=== PATIENT | female | born 1990 | race Caucasian/White ===

== ENCOUNTER 2016-06-12 18:38 | Inpatient (IN) | payer MEDICAID, OTHER ==
[2016-06-12] MEDS ORDERED: MAGNESIUM HYDROXIDE 2,400 MG/10 ML CUP PO PRN (21:52)
[2016-06-12] MEDS ORDERED: ZIPRASIDONE 20 MG VIAL IM PRN (21:52)
[2016-06-12] MEDS ORDERED: LORazepam 2 MG/ML SYRINGE IM PRN (21:54)
[2016-06-12] MEDS ORDERED: LORazepam 1 MG TAB PO PRN (21:54)
[2016-06-13 02:23] VITALS: BMI 39.3
[2016-06-13] MEDS: METOPROLOL SUCCINATE (ER) 50 MG TAB.ER.24H PO SCH (08:49)
[2016-06-13] MEDS: DULoxetine HCL 60 MG CAPSULE.DR PO SCH (08:50)
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
[2016-06-13] MEDS ORDERED: LORATADINE 10 MG TAB PO PRN (18:00)
[2016-06-13] MEDS: ACETAMINOPHEN TAB 325 MG TAB PO PRN (20:38)
[2016-06-13] MEDS: GABAPENTIN 100 MG CAP PO SCH (20:39)
[2016-06-13] MEDS ORDERED: QUEtiapine 100 MG TAB PO SCH (21:00)
[2016-06-14] MEDS: DULoxetine HCL 60 MG CAPSULE.DR PO SCH (08:43)
[2016-06-14] MEDS: GABAPENTIN 100 MG CAP PO SCH ×2 (08:43→21:02)
[2016-06-14] MEDS: METOPROLOL SUCCINATE (ER) 50 MG TAB.ER.24H PO SCH (08:44)
[2016-06-14] MEDS: PANTOPRAZOLE 40 MG TABLET PO SCH (08:44)
[2016-06-14 18:40] LABS: Basophils # (A) 0.1 k/uL (0-0.2); Basophils % (A) 1 %; CH 27.5; CHCM 32.4; Eosinophils # (A) 0.2 k/uL (0-0.7); Eosinophils % (A) 2 %; HCT 46.6 % (34.0-46.0); HDW 2.62; HGB 14.9 gm/dL (11.4-16.0); Luc # (Auto) 0.24; Luc % (Auto) 3; Lymphocytes # (A) 3.2 k/uL (1.0-4.8); Lymphocytes % (A) 33 %; MCH 27.3 pg (25.0-35.0); MCHC 31.9 g/dL (31.0-37.0); MCV 85.5 fL (80.0-100.0); Mean Platelet Volume 6.9; Monocytes # (A) 0.4 k/uL (0-1.0); Monocytes % (A) 4 %; Neutrophils # (A) 5.4 k/uL (1.3-7.7); Neutrophils % (A) 58 %; RBC 5.46 m/uL (3.80-5.40); WBC 9.5 k/uL (3.8-10.6); WBC (Perox) 9.09
--- NOTE | 2016-06-14 18:51 | PN ---
DATE OF SERVICE: June 14, 2016. CHIEF COMPLAINT: The patient was admitted for depression and social anxiety difficulties. She described having suicidal thoughts. She has had increasing depression over the last few weeks. She has loss of motivation, energy and interest. Sleep has been fluctuating. She has been having some auditory and visual hallucinations. INTERVAL HISTORY: Patient has been doing fair. She had a quiet evening last night. She has attended some groups though not others. She slept fairly well. Today, she has been doing a little bit better overall. When she is in groups she will often be quiet. She does not show much energy or effort. She seems to be attentive. She will spend time in her room by herself. She overall has been functioning a little better today where she seems to show better self-care. She was noted to sleep about 6-1/2 hours last night, though she says her sleep was broken. She describes her problems with urination where she has frequency. She says that she has had some concern that she might have early signs of diabetes. She appears to tolerating her medications. She had just been started on Cymbalta prior to her admission. Her Seroquel was continued the same. There is no substance abuse history. MENTAL STATUS: Patient was in her room lying down. She gave a fairly good eye contact. Psychomotor activity was a little slow. Speech was appropriate in rate, tone and rhythm. She answered questions with direct responses. She was not spontaneous, though she was somewhat interactive. Her affect was a little constricted. Her mood quiet. She did not appear to be significantly distressed. ASSESSMENT: I will continue the current diagnosis and treatment plan. Will continue to make efforts to engage the patient in individual and group therapeutic activities. I will continue Cymbalta 60 mg a day. I will increase Seroquel from 100 mg a day up to 200 mg a day, given that the patient is reporting psychotic symptoms with auditory and visual hallucinations. I would look to titrate up on Seroquel to an adequate therapeutic level which would be in the range of 3 to 600 mg. We will do labs to assess for diabetes and basic health issues. Will focus on stabilization. We will coordinate with outpatient resources for discharge planning.
[2016-06-14 18:53] LABS: Anion Gap 14 mmol/L; Blood Urea Nitrogen 21 mg/dL (7-17); Calcium 9.6 mg/dL (8.4-10.2); Carbon Dioxide 22 mmol/L (22-30); Chloride 104 mmol/L (98-107); Glucose 111 mg/dL (74-99); Non-African American GFR(MDRD) >60 (>60 ml/min/1.73 sqM); Potassium 4.5 mmol/L (3.5-5.1); Sodium 140 mmol/L (137-145)
[2016-06-14 19:19] LABS: Hemoglobin A1C 5.1 % (4.2-6.1)
[2016-06-14] MEDS: QUEtiapine 200 MG TAB PO SCH (21:02)
[2016-06-15] MEDS: DULoxetine HCL 60 MG CAPSULE.DR PO SCH (08:15)
[2016-06-15] MEDS: PANTOPRAZOLE 40 MG TABLET PO SCH (08:15)
[2016-06-15] MEDS: GABAPENTIN 100 MG CAP PO SCH ×2 (08:15→20:45)
[2016-06-15] MEDS: METOPROLOL SUCCINATE (ER) 50 MG TAB.ER.24H PO SCH (08:15)
[2016-06-15] MEDS: ACETAMINOPHEN TAB 325 MG TAB PO PRN (18:06)
[2016-06-15 18:15] LABS: Appearance,Urine Cloudy (Clear); Bacteria,Urine Occasional /hpf; Bilirubin,Urine Negative (Negative); Glucose,Urine (UA) Negative (Negative); Ketones,Urine Negative (Negative); Leukocyte Esterase,Urine Moderate (Negative); Mucus,Urine Rare /hpf; Nitrite,Urine Negative (Negative); PH, Urine 5.5 (5.0-8.0); Particle Count 6991; Protein,Urine Negative (Negative); RBC,Urine 1 /hpf (0-5); Specific Gravity,Urine 1.013 (1.001-1.035); Squamous Epithelial Cell,Urine 7 /hpf (0-4); UA Billing (MACRO vs. MICRO) MICRO; Urobilinogen,Urine <2.0 mg/dL (<2.0); WBC,Urine 13 /hpf (0-5)
[2016-06-15] MEDS: QUEtiapine 200 MG TAB PO SCH (20:45)
[2016-06-16] MEDS: DULoxetine HCL 60 MG CAPSULE.DR PO SCH (08:45)
[2016-06-16] MEDS: GABAPENTIN 100 MG CAP PO SCH (08:45)
[2016-06-16] MEDS: PANTOPRAZOLE 40 MG TABLET PO SCH (08:45)
[2016-06-16] MEDS: ACETAMINOPHEN TAB 325 MG TAB PO PRN ×2 (08:45→16:48)
[2016-06-16] MEDS: METOPROLOL SUCCINATE (ER) 50 MG TAB.ER.24H PO SCH (08:47)
--- NOTE | 2016-06-16 10:20 | PN ---
INTERVAL HISTORY: 06/15/2016 CHIEF COMPLAINT: The patient was admitted for depression and social anxiety difficulties. She described having suicidal thoughts. She has had increasing depression over the last few weeks. She has loss of motivation, energy and interest. Sleep has been fluctuating. She has been having some auditory and visual hallucinations. INTERVAL HISTORY: Patient has been doing fair. She had a quiet evening last night. She attends groups. She tends to be a quiet in group. She does acknowledge that she struggles with social anxiety. She slept fairly well. Today, she has been up and about. She spends sometime in her room. She has been doing things like sitting on her bed and going through some papers she has. She likes to review music lyrics that she is interested in. She has attended some groups and not others. She says that she has some struggle with sharing in group. She says that some of the groups that she has attended, others were talking quite a bit and was hard for her to find space to discuss her issues. It is noted that the patient has a bachelors degree in [employer]. She has not been able to do much with her degree, though she does have an interest in pursuing design on a professional level. She says that her mood is somewhat improved. She had a few concerns about her medications. She said she had some bruising and showed me a couple different areas on both her arms some, some of which were at sites of injection, though two were not where injections had occurred. One was quite small and well healed. The other was a small and appeared a little fresher. She also said she had a bitter taste in her mouth. She acknowledges that she has not been keeping up with fluids. One additional has been some vaginal odor and itching, as yet she has not made her recollection for urinalysis. She seems to be getting along fairly well. She is a little more animated and a little more interactive. She has not had significant change in her general health. She tolerates her psychotropic medications. MENTAL STATUS: Patient was in her room. She gave good eye contact. Psychomotor activity was a little slow. Speech was normal. She answered questions with direct responses. She was somewhat spontaneous and a little interactive. Her affect was somewhat blunted, though not significantly so. Her mood was quiet though not clearly depressed. She did not appear to be distressed. ASSESSMENT: I will continue the current diagnosis and treatment plan. Will continue psychotropic medications as same. We will encourage the patient to get the urinalysis completed as per her concern about vaginal issues. We will continue to focus on stabilization and discharge planning. I had an extensive discussion with the patient regarding activities at home. The patient acknowledges that she does not do much in the community. She lives with her mother. 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 It might be an opportunity for her to experience some design work out in the real world and possibly move her in the direction of professional development.
--- NOTE | 2016-06-16 14:48 | P.PN ---
Progress Note - Text SUBJECTIVE: Patient endorses:waking up 3-4 times at night ,nightmares, paranoia ,suspicious "Last night I was hearing someone saying there is shooting on the unit", trouble to concentrate and to retain informations"I have to write everything", she endorses lot of obsession "Listen to same music ,buying lot of pink stuffs", patient reports hands tremors ,lot of somatic complains :dizzy spells ,vertigo and lightheaded Patient endorses fear of criticism or disapproval ,viewing herself as "Inadequate " MENTAL STATUS EXAM: Patient is casually dressed ,adequate grooming ,came to office with written notes asking about medications side-effect and reporting her current symptoms, gave good eyes contact ,endorses:paranoia ,irrational fear ,poor sleep , auditory hallucinations"At night", denies any current suicidal or homicidal ideation,no manic features PLAN:1) Discontinue Neurontin to eliminate hands tremors 2) Continue Cymbalta ,change Seroquel to XR to restore normal sleep ,will consider to titrate it to eliminate psychotic features 3) Encourage groups participation ,discussed with patient post-discharge plan and possibility to refer her to [facility] counseling and [facility] ,patient agreed but she wants to discuss this with her mother
[2016-06-16] MEDS ORDERED: FLUCONAZOLE 150 MG TAB PO STA (15:05)
[2016-06-16] MEDS: QUEtiapine XR 200 MG TAB.ER.24H PO SCH (18:57)
[2016-06-16] MEDS: CIPROFLOXACIN HCL 250 MG TAB PO SCH (21:11)
[2016-06-17] MEDS: ACETAMINOPHEN TAB 325 MG TAB PO PRN (02:57)
--- NOTE | 2016-06-17 08:22 | P.CONS ---
History of Present Illness - Reason for Consult Consult date: 06/13/16 Medical management - History of Present Illness 25-year-old female. She follows with a physician in [place]. She has a past medical history of hypertension, gastroesophageal reflux disease, recurrent depression. She states she started with a new therapist on Thursday and told her that she had been depressed over the weekend and had suicidal thoughts. She was then sent to [facility] and 4 days later was transferred to [facility] mental health unit due to insurance reasons. She does have prior suicide attempts the first one was in 2006 with overdose on Effexor and a second one in 2014 where she drank alcohol and took her mother's Vicodin. She is complaining of cough with yellow sputum production and drainage down her throat. Review of Systems All systems: negative Constitutional: Denies chills, Denies fever Eyes: denies blurred vision, denies pain Ears, nose, mouth and throat: Denies headache, Denies sore throat Cardiovascular: Denies chest pain, Denies shortness of breath Respiratory: Denies cough Gastrointestinal: Denies abdominal pain, Denies diarrhea, Denies nausea, Denies vomiting Genitourinary: Denies dysuria, Denies hematuria Musculoskeletal: Denies myalgias Integumentary: Denies pruritus, Denies rash Neurological: Denies numbness, Denies weakness Psychiatric: Reports depression, Reports hopelessness, Reports suicidal ideation , Denies anxiety Endocrine: Denies fatigue, Denies weight change Past Medical History Past Medical History: GERD/Reflux, Hypertension History of Any Multi-Drug Resistant Organisms: None Reported Additional Past Surgical History / Comment(s): Left knee arthroscopy Past Psychological History: Depression Smoking Status: Never smoker Additional Past Alcohol Use History / Comment(s): Patient is a lifelong nonsmoker. She drinks alcohol rarely. She denies any medical marijuana or marijuana, street drug use. - Past Family History Father Additional Family Medical History / Comment(s): Father is alive at age 58 the patient has no contact with him. Mother Additional Family Medical History / Comment(s): Mother is alive at age 62 with history of asthma. Brother(s) Additional Family Medical History / Comment(s): Patient has one half-brother with no major medical problems. Patient has 2 half-sisters with no major medical problems. Patient does not have any children. Medications and Allergies Home Medications Medication Instructions Recorded Confirmed Type Apri ( Control) 1 tab PO DAILY 06/12/16 06/13/16 History LORazepam [Ativan] 0.5 mg PO BID PRN 06/12/16 06/13/16 History Loratadine [Claritin] 10 mg PO DAILY PRN 06/12/16 06/13/16 History PARoxetine HCL [Paxil] 30 mg PO DAILY 06/12/16 06/13/16 History QUEtiapine FUMARATE [SEROquel] 100 mg PO HS 06/12/16 06/13/16 History Allergies Allergy/AdvReac Type Severity Reaction Status Date / Time Penicillins Allergy Unknown Verified 06/13/16 02:02 Physical Exam Vitals: Vital Signs Temp Pulse Pulse Resp BP BP 06/13/16 08:56 96 16 143/79 06/13/16 06:32 98.3 F 101 H 18 132/69 06/13/16 02:19 98.5 F 109 H 16 136/103 Intake and Output 06/12/16 06/13/16 06/13/16 22:59 06:59 14:59 Other: Weight 47.355 kg 104 kg Gen: This is a 25 year old female. She is cooperative and appears to be in no acute distress. HEENT: Head is atraumatic, normocephalic. Pupils equal, round. Sclerae is anicteric. NECK: Supple. No JVD. No lymphadenopathy. No thyromegaly. LUNGS: Clear to auscultation. No wheezes or rhonchi. No intercostal retractions. HEART: Regular rate and rhythm. No murmur. ABDOMEN: Soft. Bowel sounds are present. No masses. No tenderness. EXTREMITIES: No pedal edema. No calf tenderness. NEUROLOGICAL: Patient is awake, alert and oriented x3. Cranial nerves 2 through 12 are grossly intact. Results CBC & Chem 7: 06/14/16 18:20 06/14/16 18:20 Assessment and Plan Plan: 1. Depression with suicidal ideation. Patient admitted to the mental health unit. Continue current plan of care. 2. Hypertension. Continue metoprolol succinate 50 mg daily. 3. Gastroesophageal reflux disease. Continue Protonix 40 mg daily. 4. Urinary tract infection. Continue Cipro 250 mg twice daily. 5. Vaginal yeast infection. Diflucan 1. 6. No history of tobacco use. No need for nicotine patch. Impression and plan of care have been directed as dictated by the signing physician. Susi Good nurse practitioner acting as scribe for signing physician. Time with Patient: Greater than 30
[2016-06-17] MEDS: DULoxetine HCL 60 MG CAPSULE.DR PO SCH (08:26)
[2016-06-17] MEDS: CIPROFLOXACIN HCL 250 MG TAB PO SCH ×2 (08:26→21:06)
[2016-06-17] MEDS: PANTOPRAZOLE 40 MG TABLET PO SCH (08:27)
[2016-06-17] MEDS: METOPROLOL SUCCINATE (ER) 50 MG TAB.ER.24H PO SCH (08:27)
[2016-06-17] MEDS ORDERED: IBUPROFEN 400 MG TAB PO PRN (10:11)
[2016-06-17] MEDS ORDERED: LORazepam 1 MG TAB PO PRN (10:13)
--- NOTE | 2016-06-17 10:36 | P.PN ---
Subjective SUBJECTIVE: Patient endorses:interrupted sleep ,paranoia and suspicious from her roommate " I am afraid that she will steal my notebook",,lot of somatic complain, ruminating about her health and her diagnosis ,rates her anxiety 6/10 ,10 being the worse.reports feeling on edge "Especially around people",feeling more irritable since I discontinued Neurontin,indecisive and confused about her relationship MENTAL STATUS EXAM: Patient is casually dressed ,adequate grooming ,came to office with written notes asking about medications side-effect and reporting her current symptoms, gave good eyes contact ,endorses:paranoia ,irrational fear ,poor sleep ,denies any hallucination ,somatic preoccupied, stated mood "Anxious",affect is blunted , denies any current suicidal or homicidal ideation,no manic features ,no aggressive behavior ASSESSMENT :Patient is still having anxiety ,paranoia and suspicious PLAN:1) Restart Neurontin ,add Motrin for pain ,continue Cipro for UTI ,add PRN Ativan for anxiety 2) Continue Cymbalta and Seroquel ,will consider to titrate it to eliminate psychotic features 3) Encourage groups participation ,SW to arrange family meeting to discuss post- discharge plan and referral to [facility] Objective - Vital Signs Vital signs: Vital Signs Temp 97.8 F 06/17/16 05:01 Pulse 84 06/17/16 05:01 Resp 18 06/17/16 05:01 BP 135/88 06/17/16 05:01 Pulse Ox - Labs CBC & Chem 7: 06/14/16 18:20 06/14/16 18:20
[2016-06-17] MEDS: guaiFENesin 600 MG TABLET.ER PO PRN (12:39)
[2016-06-17] MEDS: MAG HYDROX/AL HYDROX/SIMETH 30 ML CUP PO PRN (15:25)
[2016-06-17] MEDS: GABAPENTIN 100 MG CAP PO SCH ×2 (16:13→21:06)
[2016-06-17] MEDS: QUEtiapine XR 200 MG TAB.ER.24H PO SCH (18:38)
[2016-06-17] MEDS: MICONAZOLE NITRATE 200 MG VAGINAL SCH (21:06)
[2016-06-18] MEDS: GABAPENTIN 100 MG CAP PO SCH ×3 (08:05→21:21)
[2016-06-18] MEDS: PANTOPRAZOLE 40 MG TABLET PO SCH (08:05)
[2016-06-18] MEDS: DULoxetine HCL 60 MG CAPSULE.DR PO SCH (08:05)
[2016-06-18] MEDS: CIPROFLOXACIN HCL 250 MG TAB PO SCH ×2 (08:06→20:09)
[2016-06-18] MEDS: METOPROLOL SUCCINATE (ER) 50 MG TAB.ER.24H PO SCH (08:06)
[2016-06-18] MEDS ORDERED: BENZTROPINE MESYLATE 0.5 MG TAB PO PRN (13:04)
--- NOTE | 2016-06-18 13:22 | P.PN ---
Progress Note - Text SUBJECTIVE: Patient endorses:irritable mood ,low frustration tolerance ,,,lot of somatic complain,ruminating about her health and her diagnosis ,rates her irritability 5 or 6/10,10 the worse.reports feeling on edge ,recurrent suicidal ideation but able to contract for safety on the unit as she said "I do not feel safe outside hospital ",preoccupied with unjustified doubts about others ,suspect ,without sufficient basis that others are deceiving her She reports of having "Jerks movement with Seroquel" PER NURSING STAFF:slept 6 hours ,somatic preoccupied MENTAL STATUS EXAM: Patient is casually dressed ,adequate grooming ,came to office with written notes asking about medications side-effect and reporting her current symptoms, gave good eyes contact ,endorses:paranoia ,irrational fear ,,denies any hallucination ,somatic preoccupied, ,affect is blunted, ,not able to contract for safety outside hospital,no manic features ,no aggressive behavior ASSESSMENT :Patient is still having suicidal ideation ,labile and irritable mood ,paranoia and suspicious AIMS:negative, PLAN:1) Increase Neurontin to stabilize her mood ,continue Cymbalta and Seroquel ,same dose,add cogentin PRN,continue participation in milieu , monitor her suicidal ideation and irritability
[2016-06-18] MEDS: QUEtiapine XR 200 MG TAB.ER.24H PO SCH (18:49)
[2016-06-18] MEDS: MAG HYDROX/AL HYDROX/SIMETH 30 ML CUP PO PRN (20:09)
[2016-06-18] MEDS: MICONAZOLE NITRATE 200 MG VAGINAL SCH (20:10)
[2016-06-19] MEDS: GABAPENTIN 100 MG CAP PO SCH ×3 (09:26→20:53)
[2016-06-19] MEDS: METOPROLOL SUCCINATE (ER) 50 MG TAB.ER.24H PO SCH (09:26)
[2016-06-19] MEDS: CIPROFLOXACIN HCL 250 MG TAB PO SCH ×2 (09:26→20:53)
[2016-06-19] MEDS: PANTOPRAZOLE 40 MG TABLET PO SCH (09:27)
[2016-06-19] MEDS: DULoxetine HCL 60 MG CAPSULE.DR PO SCH (09:27)
--- NOTE | 2016-06-19 14:58 | P.PN ---
Progress Note - Text SUBJECTIVE: Patient endorses:irritable mood , ,,,lot of somatic complain,ruminating about her health and her diagnosis ,preoccupied with unjustified doubts about others , suspect ,without sufficient basis that others are deceiving her She reports AM sedation ,tiredness and fatigue since increasing Seroquel to 200 mg PER NURSING STAFF:slept 6 hours ,participating in groups and milieu MENTAL STATUS EXAM: Patient is casually dressed ,adequate grooming ,came to office with written notes asking about medications side-effect and reporting her current symptoms, gave good eyes contact ,,,denies any hallucination ,,despite denying psychotic features seems having trust issue ,no manic features ,no aggressive behavior, no suicidal or homicidal ideation,insight is improving ASSESSMENT :patient is less depressed ,denies suicidal or homicidal ideation , still somatic preoccupied ,endorses some AM sedation due to Seroquel AIMS:negative, PLAN:Decreased Seroquel to 150 mg instead of 200 mg ,continue rest of medication ,most likely discharge Tomorrow to [facility]
[2016-06-19] MEDS: MICONAZOLE NITRATE 200 MG VAGINAL SCH (20:54)
[2016-06-19 22:36] LABS: Appearance,Urine Cloudy (Clear); Bacteria,Urine Occasional /hpf; Bilirubin,Urine Negative (Negative); Glucose,Urine (UA) Negative (Negative); Ketones,Urine Negative (Negative); Leukocyte Esterase,Urine Moderate (Negative); Nitrite,Urine Negative (Negative); Particle Count 2137; Protein,Urine Negative (Negative); RBC,Urine 6 /hpf (0-5); Specific Gravity,Urine 1.008 (1.001-1.035); Squamous Epithelial Cell,Urine 1 /hpf (0-4); UA Billing (MACRO vs. MICRO) MICRO; Urobilinogen,Urine <2.0 mg/dL (<2.0); WBC,Urine 26 /hpf (0-5)
[2016-06-20 07:04] VITALS: BP 162/63; PULSE 108; RESP 16; TEMP 98
[2016-06-20] MEDS: DULoxetine HCL 60 MG CAPSULE.DR PO SCH (08:24)
[2016-06-20] MEDS: PANTOPRAZOLE 40 MG TABLET PO SCH (08:24)
[2016-06-20] MEDS: CIPROFLOXACIN HCL 250 MG TAB PO SCH (08:24)
[2016-06-20] MEDS: GABAPENTIN 100 MG CAP PO SCH ×2 (08:24→16:10)
[2016-06-20] MEDS: METOPROLOL SUCCINATE (ER) 50 MG TAB.ER.24H PO SCH (08:24)
[2016-06-20] MEDS: guaiFENesin 600 MG TABLET.ER PO PRN (09:32)
--- NOTE | 2016-06-21 09:41 | DS ---
DATE OF ADMISSION: 06/12/2016 DATE OF DISCHARGE: 06/20/2016 CONSULT PHYSICIAN: Routine. CONSULTING PROVIDE: Susi Good. CONSULT REASON: Medical management. Do you want consulting provider notified? She already was notified. DISCHARGE DIAGNOSES: 1. Major depression, recurrent, severe. 2. Social anxiety. 3. History of bipolar disorder. 4. Cluster C personality disorder. For brief summary of admission notes, please refer to my initial psychiatric evaluation dictated on June 13. HOSPITAL COURSE: Patient was admitted as a transfer from inpatient [facility] as her insurance did not cover her stay in [facility]. I did continue her on Cymbalta as she was just started on Cymbalta. I did discuss with her Seroquel XR as she was on regular Seroquel and this to help her thinking and restore her sleep and pursue her social phobia and she did agree to switch to Seroquel XR 150 mg at night. I did try to increase the Seroquel XR to 200; however, she started having jerk and extrapyramidal symptoms and Cogentin was added. During her stay here, patient was seen very somatic, preoccupied, over analyzing her diagnosis. She was able to tolerate Cymbalta and Seroquel without complaining of any side effect; however, her urinalysis was positive for bacteria and we did start her on Cipro for urinary tract infection on June 16, 250 mg twice a day. Patient did note that since she did start Neurontin she has been less anxious and able to tolerate people more and she was participating in group therapy and activity therapy. drapery worker had family meeting with patient's mother who did feel that the patient was improving. She was still so preoccupied with how other people are treating her, but she was very receptive to behavior and cognitive therapy. Her mental status examination at the time of the discharge, patient is alert, good eye contact, hygiene and grooming are adequate. Speech is spontaneous, non-pressured. At times, she is ( ), but easily to re-direct. She denied any homicidal or suicide ideation. She does not feel hopeless or helpless. In fact she has a lot of future goals to increase her socialization. There is no evidence of hypomania or curtis. There is no evidence of psychosis. Her insight and judgment are improving. Cognitive ability has remained stable throughout her hospitalization as she is alert, oriented to person, place and date. There is no verbal or physical aggression observed. PLAN: 1. Patient was discharged from the mental health unit today to return back home. Patient will see her outpatient psychiatrist, Dr. Watson. 2. Patient has to follow up with her primary care physician regarding her urinary tract infection as I will continue her on Cipro 250 twice a day until June 26. Patient was given one month supply for: 1. Cymbalta 60 mg for depression and anxiety. 2. Neurontin 200 mg 3 times a day for anxiety. 3. Seroquel XR 150 mg for her sleep and as augmentation for Cymbalta. 4. Patient also was given Cogentin as needed for 2-week supply p.r.n. for any extrapyramidal effect. 5. Motrin 400 mg to take every 6 hours p.r.n. for pain. 6. Patient stated that she has Ativan at home 0.5 to take it twice a day as needed for anxiety or for social phobia. So she was not given any prescription for Ativan. 7. However, during her stay, patient was experiencing high blood pressure and the railroad design consultant did start her on Toprol XL 50 mg daily and I did give her prescription for one-month supply for Toprol in addition Protonix 40 mg daily, magnesium hydroxide or milk magnesium p.r.n. The patient is able to complete her activity on daily living and she is not eminent to self harm or harming other, does not have any access to firearms and she was ready to be transferred to [facility] for intensive therapy and increased social activity.
== END 2016-06-20 17:42 | disposition home or self-care (01) | DRG 885 ==
LOC: 3MHU 20:25
PROVIDERS: ADMIT Psychiatry & Neurology Psychiatry; ATTEND Psychiatry & Neurology Psychiatry
DX: F33.2 Major depressive disorder, recurrent severe without psychotic features (principal); R45.851 Suicidal ideations; I10 Essential (primary) hypertension; N39.0 Urinary tract infection, site not specified; F40.10 Social phobia, unspecified; F60.6 Avoidant personality disorder; F60.89 Other specific personality disorders; K21.9 Gastro-esophageal reflux disease without esophagitis; Z79.899 Other long term (current) drug therapy; Z81.8 Family history of other mental and behavioral disorders; Z88.0 Allergy status to penicillin; Z91.5 Personal history of self-harm
CPT/HCPCS: 80048; 81001; 83036; 84443; 85025

== ENCOUNTER 2018-09-13 11:12 | Emergency (ER) | payer OTHER ==
[2018-09-13 11:18] VITALS: RESP 18
--- NOTE | 2018-09-13 12:38 | ED ---
Psych HPI - General Chief Complaint: Psychiatric Symptoms Stated Complaint: mental health Time Seen by Provider: 09/13/18 11:20 Source: patient Mode of arrival: ambulatory - History of Present Illness Initial Comments: This is a 28-year-old female the ER for psychiatric evaluation. Patient is having psychosis, seeing things that aren't there, she believes that she is part satan adn part of the illuminati, patient denies alcohol drugs 30 abuse of medications today. MD Complaint: altered mental status -: unknown Associated Psychiatric Symptoms: homicidal ideation, racing thoughts, auditory hallucinations, visual hallucinations, delusions Quality: intermittent Improves With: none Worsens With: none Treatments Prior to Arrival: placed on mental health hold - Related Data Home Medications Medication Instructions Recorded Confirmed Loratadine [Claritin] 10 mg PO DAILY 06/12/16 09/13/18 Albuterol Inhaler [Ventolin Hfa 1 - 2 puff INHALATION RT-QID PRN 03/01/17 09/13/18 Inhaler] Propranolol [Inderal] 40 mg PO BID 09/13/18 09/13/18 buPROPion HCL [Wellbutrin XL] 300 mg PO DAILY 09/13/18 09/13/18 buPROPion XL [Wellbutrin Xl] 150 mg PO DAILY 09/13/18 09/13/18 hydrOXYzine PAMOATE [Vistaril] 100 mg PO BID 09/13/18 09/13/18 lamoTRIgine [LaMICtal] 200 mg PO HS 09/13/18 09/13/18 Allergies Allergy/AdvReac Type Severity Reaction Status Date / Time Penicillins Allergy Rash/Hives Verified 09/13/18 11:52 Review of Systems ROS Statement: Those systems with pertinent positive or pertinent negative responses have been documented in the HPI. ROS Other: All systems not noted in ROS Statement are negative. Past Medical History Past Medical History: GERD/Reflux, Hypertension History of Any Multi-Drug Resistant Organisms: None Reported Additional Past Surgical History / Comment(s): Left knee arthroscopy Past Psychological History: Anxiety, Bipolar, Depression Smoking Status: Never smoker Past Alcohol Use History: Unable to Obtain Past Drug Use History: None Reported - Past Family History Father Additional Family Medical History / Comment(s): Father is alive at age 58 the patient has no contact with him. Mother Additional Family Medical History / Comment(s): Mother is alive at age 62 with history of asthma. Brother(s) Additional Family Medical History / Comment(s): Patient has one half-brother with no major medical problems. Patient has 2 half-sisters with no major medical problems. Patient does not have any children. General Exam Limitations: no limitations General appearance: alert, in no apparent distress Head exam: Present: atraumatic, normocephalic, normal inspection Eye exam: Present: normal appearance, PERRL, EOMI. Absent: scleral icterus, conjunctival injection, periorbital swelling ENT exam: Present: normal exam, mucous membranes moist Neck exam: Present: normal inspection. Absent: tenderness, meningismus, lymphadenopathy Respiratory exam: Present: normal lung sounds bilaterally. Absent: respiratory distress, wheezes, rales, rhonchi, stridor Cardiovascular Exam: Present: regular rate, normal rhythm, normal heart sounds. Absent: systolic murmur, diastolic murmur, rubs, gallop, clicks GI/Abdominal exam: Present: soft, normal bowel sounds. Absent: distended, tenderness, guarding, rebound, rigid Extremities exam: Present: normal inspection, full ROM, normal capillary refill. Absent: tenderness, pedal edema, joint swelling, calf tenderness Back exam: Present: normal inspection Neurological exam: Present: alert, oriented X3, CN II-XII intact Psychiatric exam: Present: normal affect, normal mood Skin exam: Present: warm, dry, intact, normal color. Absent: rash Course Vital Signs 09/13/18 09/13/18 11:13 16:27 Temperature 98.7 F 98.1 F Pulse Rate 81 80 Respiratory 18 18 Rate Blood Pressure 160/98 141/89 O2 Sat by Pulse 100 96 Oximetry - Reevaluation(s) Reevaluation #1: Patient's medically clear for psychiatric evaluation Medical Decision Making - Medical Decision Making Plan I female the ER for evaluation. Patient with psychosis, not currently suicidal or homicidal. Patient can be discharged home - Lab Data Lab Results 09/13/18 Range/Units 14:30 Urine Opiates Screen Not Detected (NotDetected) Ur Oxycodone Screen Not Detected (NotDetected) Urine Methadone Screen Not Detected (NotDetected) Ur Propoxyphene Screen Not Detected (NotDetected) Ur Barbiturates Screen Not Detected (NotDetected) U Tricyclic Antidepress Not Detected (NotDetected) Ur Phencyclidine Scrn Not Detected (NotDetected) Ur Amphetamines Screen Not Detected (NotDetected) U Methamphetamines Scrn Not Detected (NotDetected) U Benzodiazepines Scrn Not Detected (NotDetected) Urine Cocaine Screen Not Detected (NotDetected) U Marijuana (THC) Screen Not Detected (NotDetected) Disposition Clinical Impression: Acute psychosis Disposition: HOME SELF-CARE Condition: Fair Instructions (If sedation given, give patient instructions): Brief Psychotic Disorder (ED) Is patient prescribed a controlled substance at d/c from ED?: No Referrals: Gaetano Yee DO [Primary Care Provider] - 1-2 days
[2018-09-13 14:57] LABS: Amphetamine Screen,Urine Not Detected (NotDetected); Barbiturate Screen,Urine Not Detected (NotDetected); Benzodiazepines Screen,Urine Not Detected (NotDetected); Cocaine Screen,Urine Not Detected (NotDetected); Methadone Screen, Urine Not Detected (NotDetected); Opiate Screen,Urine Not Detected (NotDetected); Oxycodone Screen, Urine Not Detected (NotDetected); Phencyclidine Screen,Urine Not Detected (NotDetected); Tricyclic Antidepressant,Urine Not Detected (NotDetected); Urn Cannabinoid Scrn Not Detected (NotDetected)
[2018-09-13 16:29] VITALS: BP 141/89; PULSE 80; TEMP 98.1
--- NOTE | 2018-09-14 04:34 | CDI ---
Documentation Clarification OP Dear Pawan PATINO, DO Please do addendum to ED report for missing HPI and Physical examination. Thank you, Ifeanyi Deng Biomathematician If you have any questions, please contact Practice Advisor at [phone] [facility]
== END 2018-09-13 16:27 | disposition home or self-care (01) ==
LOC: EC 11:12
DX: F23 Brief psychotic disorder (principal); I10 Essential (primary) hypertension; F41.9 Anxiety disorder, unspecified; F32.9 Major depressive disorder, single episode, unspecified; Z79.899 Other long term (current) drug therapy; Z88.0 Allergy status to penicillin
CPT/HCPCS: 80306; 82075; 99285

== ENCOUNTER 2019-07-27 15:59 | Inpatient (IN) | payer MEDICAID, OTHER ==
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
[2019-07-27 17:36] LABS: Amphetamine Screen,Urine Not Detected (NotDetected); Barbiturate Screen,Urine Not Detected (NotDetected); Benzodiazepines Screen,Urine Not Detected (NotDetected); Cocaine Screen,Urine Not Detected (NotDetected); Methadone Screen, Urine Not Detected (NotDetected); Opiate Screen,Urine Not Detected (NotDetected); Oxycodone Screen, Urine Not Detected (NotDetected); Phencyclidine Screen,Urine Not Detected (NotDetected); Tricyclic Antidepressant,Urine Not Detected (NotDetected); Urn Cannabinoid Scrn Not Detected (NotDetected)
[2019-07-27] MEDS ORDERED: MAGNESIUM HYDROXIDE 2,400 MG/10 ML CUP PO PRN (20:34)
[2019-07-27] MEDS ORDERED: MAG HYDROX/AL HYDROX/SIMETH 30 ML CUP PO PRN (20:34)
[2019-07-27 21:06] LABS: Amorphous Sediment,Urine Rare /hpf; Appearance,Urine Cloudy (Clear); Bacteria,Urine Many /hpf; Bilirubin,Urine Negative (Negative); Blood,Urine Moderate (Negative); Color,Urine Yellow; Glucose,Urine (UA) Negative (Negative); Hyaline Casts,Urine 3 /lpf (0-2); Ketones,Urine 3+ (Negative); Leukocyte Esterase,Urine Moderate (Negative); Mucus,Urine Many /hpf; Nitrite,Urine Positive (Negative); Protein,Urine 2+ (Negative); RBC,Urine 5 /hpf (0-5); Specific Gravity,Urine 1.032 (1.001-1.035); Squamous Epithelial Cell,Urine 17 /hpf (0-4); Urobilinogen,Urine <2.0 mg/dL (<2.0); WBC,Urine 29 /hpf (0-5)
[2019-07-27] MEDS: hydrOXYzine PAMOATE 25 MG CAP PO SCH (22:11)
[2019-07-27] MEDS: lamoTRIgine 100 MG TAB PO SCH (22:12)
[2019-07-27] MEDS: NORG EE PO SCH (22:13)
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
[2019-07-28 07:35] LABS: Appearance,Urine Cloudy (Clear); Bacteria,Urine Many /hpf; Bilirubin,Urine Negative (Negative); Blood,Urine Moderate (Negative); Color,Urine Yellow; Glucose,Urine (UA) Negative (Negative); Ketones,Urine 2+ (Negative); Leukocyte Esterase,Urine Small (Negative); Mucus,Urine Many /hpf; Nitrite,Urine Positive (Negative); PH, Urine 5.5 (5.0-8.0); Protein,Urine 1+ (Negative); RBC,Urine 7 /hpf (0-5); Specific Gravity,Urine 1.035 (1.001-1.035); Squamous Epithelial Cell,Urine 5 /hpf (0-4); Urobilinogen,Urine <2.0 mg/dL (<2.0); WBC,Urine 21 /hpf (0-5)
[2019-07-28 09:46] LABS: Basophils % (A) 1 %; Eosinophils # (A) 0.1 k/uL (0-0.7); Eosinophils % (A) 1 %; HCT 45.9 % (34.0-46.0); HGB 15.1 gm/dL (11.4-16.0); Lymphocytes # (A) 3.1 k/uL (1.0-4.8); Lymphocytes % (A) 40 %; MCH 27.7 pg (25.0-35.0); MCHC 32.8 g/dL (31.0-37.0); MCV 84.5 fL (80.0-100.0); Mean Platelet Volume 7.3; Monocytes # (A) 0.3 k/uL (0-1.0); Monocytes % (A) 4 %; Neutrophils # (A) 4.1 k/uL (1.3-7.7); Neutrophils % (A) 53 %; Platelet Count 363 k/uL (150-450); RBC 5.43 m/uL (3.80-5.40); RDW 13.7 % (11.5-15.5); WBC 7.9 k/uL (3.8-10.6)
[2019-07-28 09:55] LABS: ALT 26 U/L (4-34); AST 27 U/L (14-36); African American GFR (CKD) >90 (>60 ml/min/1.73 sqM); Albumin 4.6 g/dL (3.5-5.0); Alkaline Phosphatase 69 U/L (38-126); Anion Gap 14 mmol/L; Blood Urea Nitrogen 17 mg/dL (7-17); Calcium 9.2 mg/dL (8.4-10.2); Carbon Dioxide 23 mmol/L (22-30); Chloride 100 mmol/L (98-107); Cholesterol 240 mg/dL (<200); Glucose 114 mg/dL (74-99); Non-African American GFR(CKD) >90 (>60 ml/min/1.73 sqM); Potassium 4.6 mmol/L (3.5-5.1); Sodium 137 mmol/L (137-145); Total Protein 7.8 g/dL (6.3-8.2); Triglycerides 129 mg/dL (<150)
[2019-07-28] MEDS: hydrOXYzine PAMOATE 25 MG CAP PO SCH ×2 (10:27→21:01)
[2019-07-28] MEDS: buPROPion XL 300 MG TAB.ER.24H PO SCH (10:27)
[2019-07-28] MEDS: buPROPion XL 150 MG TAB.ER.24H PO SCH (10:27)
[2019-07-28] MEDS: NITROFURANTOIN MONOHYD/M-CRYST 100 MG CAP PO SCH ×2 (10:28→21:01)
[2019-07-28] MEDS: LORATADINE 10 MG TAB PO SCH (10:28)
[2019-07-28 10:53] LABS: HDL Cholesterol 112 mg/dL (40-60); LDL Cholesterol,Calculated 102 mg/dL (0-99)
[2019-07-28] MEDS: LOPERAMIDE 2 MG CAP PO PRN (11:09)
[2019-07-28] MEDS: ONDANSETRON 4 MG TAB PO PRN (11:09)
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
[2019-07-28 16:22] LABS: Hemoglobin A1C 4.3 % (4.0-6.0)
[2019-07-28] MEDS: ACETAMINOPHEN TAB 325 MG TAB PO PRN ×2 (17:03→21:01)
[2019-07-28] MEDS: lamoTRIgine 100 MG TAB PO SCH (21:01)
[2019-07-28] MEDS: NORG EE PO SCH (21:03)
[2019-07-29] MEDS: buPROPion XL 300 MG TAB.ER.24H PO SCH (09:36)
[2019-07-29] MEDS: LORATADINE 10 MG TAB PO SCH (09:36)
[2019-07-29] MEDS: hydrOXYzine PAMOATE 25 MG CAP PO SCH ×2 (09:36→22:06)
[2019-07-29] MEDS: buPROPion XL 150 MG TAB.ER.24H PO SCH (09:36)
[2019-07-29] MEDS: NITROFURANTOIN MONOHYD/M-CRYST 100 MG CAP PO SCH ×2 (09:36→22:07)
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
[2019-07-29] MEDS: LOPERAMIDE 2 MG CAP PO PRN (14:40)
--- NOTE | 2019-07-29 21:43 | XR ---
EXAMINATION TYPE: XR chest 1V portable DATE OF EXAM: 07/29/2019 COMPARISON: 03/01/2017 HISTORY: Cough and congestion TECHNIQUE: FINDINGS: Heart and mediastinum are normal. Lungs are clear. Diaphragm is normal. Bony thorax appears normal. IMPRESSION: Normal chest. No change.
[2019-07-29] MEDS: NORG EE PO SCH (22:07)
[2019-07-29] MEDS: lamoTRIgine 100 MG TAB PO SCH (22:07)
[2019-07-29 22:09] LABS: ALT 23 U/L (4-34); AST 26 U/L (14-36); African American GFR (CKD) >90 (>60 ml/min/1.73 sqM); Albumin 4.2 g/dL (3.5-5.0); Alkaline Phosphatase 61 U/L (38-126); Anion Gap 8 mmol/L; Blood Urea Nitrogen 13 mg/dL (7-17); Calcium 9.4 mg/dL (8.4-10.2); Carbon Dioxide 27 mmol/L (22-30); Chloride 101 mmol/L (98-107); Glucose 94 mg/dL (74-99); Non-African American GFR(CKD) >90 (>60 ml/min/1.73 sqM); Potassium 4.4 mmol/L (3.5-5.1); Sodium 136 mmol/L (137-145); Total Bilirubin 0.5 mg/dL (0.2-1.3)
[2019-07-29 22:14] LABS: Basophils % (A) 0 %; Eosinophils # (A) 0.1 k/uL (0-0.7); Eosinophils % (A) 1 %; HCT 42.9 % (34.0-46.0); HGB 14.1 gm/dL (11.4-16.0); Lymphocytes # (A) 2.8 k/uL (1.0-4.8); Lymphocytes % (A) 37 %; MCH 27.7 pg (25.0-35.0); MCHC 32.8 g/dL (31.0-37.0); MCV 84.4 fL (80.0-100.0); Mean Platelet Volume 7.3; Monocytes # (A) 0.3 k/uL (0-1.0); Monocytes % (A) 4 %; Neutrophils # (A) 4.1 k/uL (1.3-7.7); Neutrophils % (A) 54 %; Platelet Count 308 k/uL (150-450); RBC 5.08 m/uL (3.80-5.40); RDW 13.6 % (11.5-15.5); WBC 7.6 k/uL (3.8-10.6)
[2019-07-30] MEDS: ACETAMINOPHEN TAB 325 MG TAB PO PRN ×3 (02:48→20:11)
--- NOTE | 2019-07-30 02:52 | P.PN ---
Progress Note - Text Progress Note Date: 07/30/19 Notified by the RN that the patient is c/o non-productive cough and SOB. The patient was evaluated at the bedside in the MHU with droplet PPE. The patient noted that she feels fatigued along with the cough and feeling short of breath. The patient denied chest pain, nausea, vomiting, or abdominal pain. The patient's vitals were wnl with SpO2 97% on RA. General: Non-toxic, in no acute distress, appears stated age, obese HEENT: NC/AT, anicteric sclerae, moist conjunctiva, no lid-lag, PERRLA Cardiovascular: S1/S2 wnl, no murmurs, rubs, or gallops Lungs: Clear to auscultation, normal respiratory effort, no accessory muscle use Abdominal: Soft, non-tender, non-distended, no guarding, rebound, or rigidity Skin: Warm, dry Extremities: No edema or contractures Psychiatric: Alert and oriented to person, place and time, appropriate affect Neuro: CN II-XII grossly intact, Strength 5/5 in all 4 extremities, Speech intact, Sensation to light touch grossly intact throughout Non-productive cough and SOB -CMP, CBC, and CXR reviewed with no abnormalities noted. Influenza neg. Patient does not currently meet hospital guidelines for Covid-19 testing -C/w droplet precautions for now. Upon clearance from MHU, the patient should do home-quarantine. May consider testing upon availability of further test kits
[2019-07-30] MEDS: hydrOXYzine PAMOATE 25 MG CAP PO SCH ×2 (08:04→20:10)
[2019-07-30] MEDS: buPROPion XL 300 MG TAB.ER.24H PO SCH (08:04)
[2019-07-30] MEDS: NITROFURANTOIN MONOHYD/M-CRYST 100 MG CAP PO SCH ×2 (08:05→20:09)
[2019-07-30] MEDS: LORATADINE 10 MG TAB PO SCH (08:05)
[2019-07-30] MEDS: buPROPion XL 150 MG TAB.ER.24H PO SCH (08:05)
--- NOTE | 2019-07-30 13:03 | P.PN ---
Progress Note - Text Interval history: The patient is found in her room she is currently on droplet precautions and is asked to stay in her room. She presented with acute suicidal ideation and recent suicide attempt via asphyxiation. He states that she believes she has a coronal virus and this will end her life and it will kill everybody. We discussed her concerns at length trying to temper the conversation with objective information. She seemed mildly responsive to optimistic statistics regarding the illness. She was reminded that prior to our conversation she has been afebrile her chest x-ray has been negative. Internal medicine states that she does not want testing specifically for mendoza virus. She states that her mood is better because she has accepted that she will . Mental status exam: The patient's an overweight female she is dressed in hospital attire she seated upright in bed. Eye contact is initially poor but as the conversation progresses it improves. She reported a depressed mood with suicidal ideation upon presentation but states now she's not suicidal and she has "accepted that I'm going to ". She maintains a bland affect throughout the session. She is reporting no auditory or visual hallucinations. She states prior to coming in the hospital she was experiencing hypnopompic hallucinations such as seeing spiders upon awakening but they would vanish very quickly. She demonstrates no verbal or physical aggressiveness. She demonstrates no physical distress. There is no evidence of shortness of breath. She demonstrated no coughing behavior during our interaction. Plan: The patient will remain on her current psychotropic medication. We will monitor her for safety she will be kept on droplet precautions. We will monitor for any symptoms of psychosis. She has been eating appropriately she ate 100% of her breakfast and was interested in eating lunch at the conclusion of our session. We will continue to have internal medicine follow her progress. We will monitor for any changes and her temperature monitor for shortness of breath and/or coughing. She requires continued psychiatric hospitalization due to her current symptoms.
[2019-07-30] MEDS: NORG EE PO SCH (20:09)
[2019-07-30] MEDS: lamoTRIgine 100 MG TAB PO SCH (20:10)
[2019-07-30] MEDS: ZINC OXIDE 20% OINT 28.4 GM TUBE TOPICAL PRN (23:58)
[2019-07-30] MEDS: LORazepam 1 MG TAB PO PRN (23:58)
[2019-07-31] MEDS: ONDANSETRON 4 MG TAB PO PRN ×2 (01:25→09:03)
[2019-07-31] MEDS: ACETAMINOPHEN TAB 325 MG TAB PO PRN ×3 (09:03→18:19)
[2019-07-31] MEDS: buPROPion XL 150 MG TAB.ER.24H PO SCH (09:03)
[2019-07-31] MEDS: LORATADINE 10 MG TAB PO SCH (09:03)
[2019-07-31] MEDS: buPROPion XL 300 MG TAB.ER.24H PO SCH (09:03)
[2019-07-31] MEDS: hydrOXYzine PAMOATE 25 MG CAP PO SCH ×2 (09:03→21:01)
[2019-07-31] MEDS: ZINC OXIDE 20% OINT 28.4 GM TUBE TOPICAL PRN (09:05)
--- NOTE | 2019-07-31 12:23 | P.PN ---
Progress Note - Text Interval history: The patient is in her room again she is under droplet precautions and is isolated to her room. She indicates that her mood is a little better today. She reports having feelings of anxiety last evening she felt she had some shortness of breath and experiencing some hives on her arm. Those have resolved. Staff reported that she had been writing on her paperwork this morning that we have been lying about the severity of her illness. She states that she thought she heard someone talking outside the other day that she was going to . Again some time was spent trying to reassure her that she has been clinically stable. She demonstrates no signs of respiratory distress she has been afebrile and vital signs are stable. Again she does respond somewhat to reassurance. She has been compliant with her medication. She has no questions or concerns regarding those. Mental status exam: The patient is an overweight female she is dressed in hospital gowns. She seated upright she is alert she has intermittent eye contact. Speech is fluent nonspontaneous but she does provide answers to questions. She answers slowly at times. She seems to lack insight into the severity of her anxiety and her anxiety reactions. She assumes that these anxiety reactions are part of some ominous illness. She is reporting no suicidal or homicidal ideation intent or plan at this time. She is endorsing no auditory or visual hallucinations other than a few days ago she thought she heard internal medicine saying that she was going to . She demonstrates no objective evidence of psychosis during our interaction. She demonstrates no verbal or physical aggressiveness. As the session progresses she does become more interactive. She asks when she is allowed to leave her room and interact in the milieu more. She is interested in speaking with her mother via phone. Plan: The patient will continue on her current psychotropic medication. I would consider initiating an antidepressant that will address her anxiety symptoms as well so long as this does not to stabilize her mood disorder. We will continue to monitor for safety. She will be kept on droplet precautions as recommended by internal medicine. We will continue to evaluate her acute safety risk and need for hospitalization.
[2019-07-31] MEDS: LORazepam 1 MG TAB PO PRN ×2 (13:49→23:51)
[2019-07-31] MEDS: lamoTRIgine 100 MG TAB PO SCH (21:00)
[2019-07-31] MEDS: NORG EE PO SCH (21:02)
[2019-08-01] MEDS: hydrOXYzine PAMOATE 25 MG CAP PO SCH ×2 (08:17→20:30)
[2019-08-01] MEDS: LORATADINE 10 MG TAB PO SCH (08:17)
[2019-08-01] MEDS: buPROPion XL 300 MG TAB.ER.24H PO SCH (08:17)
[2019-08-01] MEDS: buPROPion XL 150 MG TAB.ER.24H PO SCH (08:17)
[2019-08-01] MEDS: LORazepam 1 MG TAB PO PRN (10:43)
[2019-08-01] MEDS: ONDANSETRON 4 MG TAB PO PRN (10:43)
--- NOTE | 2019-08-01 13:14 | P.PN ---
Subjective Progress Note Date: 08/01/19 Principal diagnosis: Bipolar disorder current episode depressed with psychotic features, social phobia, unspecified personality disorder, rule out obsessive-compulsive disorder I reviewed the medical record, interviewed the patient and discuss her treatment and treatment plan during team meeting. On Thursday afternoon she complained of shortness of breath and cough. The hospitalist evaluated her and recommended droplet precautions. She did not meet criteria for testing for COVID 19. She has remained in isolation under droplet precautions. Her blood pressure has been persistently elevated but her temperature has been within normal range (with the exception of one reading of 100F). She remains preoccupied with the belief that we are in the end of the world scenario. She believes that we have not properly diagnosed her and that she has COVID19. She wants to be discharged so she can prepare for "doomsday". Her belief about the virus infection is fixed and unquestionable. We discussed treatment options and she agreed to trial of Prolixin and transition to a long-acting injectable. (Note that the patient's mother conveyed thru the social insurance administrator that she would like her daughter started on a long-acting injectable). Objective - Vital Signs Vital signs: Vital Signs Temp 98.6 F 08/01/19 11:04 Pulse 115 H 08/01/19 11:04 Resp 16 08/01/19 11:04 BP 178/106 08/01/19 11:04 Pulse Ox 100 08/01/19 08:51 - Exam She presented as a moderately obese 28-year-old female who was pleasant on approach. She made eye contact and attended to interview. She had no distinction features are prominent physical abnormalities. She had a bright facial expression. She was alert and oriented to person, place and time. She showed no abnormality of psychomotor activity. His speech was spontaneous with normal rate, rhythm and volume. Affect was stable and appropriate. She denied suicidal ideation or wishes. She denied homicidal ideation. She ruminated over the above beliefs. She described experience suggestive ideas reference (she talked about seeing it security administrator while the hallway and talked about the guard as though he had communicated to her. She also talked about the security camera to the hallway). However she did not describe clear ideas reference. Her preoccupation with the COVID 19 is delusional since she ma intains an unshakable belief despite evidence contrary. Her thinking was abstract and associations were coherent and logical. She did not appear to be responding to internal stimuli. - Labs CBC & Chem 7: 07/29/19 21:35 07/29/19 21:40 Assessment and Plan Assessment: I suspect that her beliefs about infection are delusional and related to her underlying psychiatric illness. Plan: Continue inpatient treatment due to the severity of her psychiatric condition. Safety precautions. Continue droplet precautions. Continue current dose of Wellbutrin and Lamictal. Begin Prolixin 1 mg by mouth twice a day and titrated according to clinical response and tolerance. Transition to Prolixin decanoate prior to discharge. Encourage participation in therapeutic groups and activities. Evaluate current status response to treatment daily basis.
[2019-08-01] MEDS: NORG EE PO SCH (20:30)
[2019-08-01] MEDS: lamoTRIgine 100 MG TAB PO SCH (20:31)
[2019-08-01] MEDS: ACETAMINOPHEN TAB 325 MG TAB PO PRN (21:06)
[2019-08-02 06:36] VITALS: BP 139/62; PULSE 90; RESP 14; TEMP 97.8
[2019-08-02] MEDS: hydrOXYzine PAMOATE 25 MG CAP PO SCH (08:31)
[2019-08-02] MEDS: buPROPion XL 150 MG TAB.ER.24H PO SCH (08:31)
[2019-08-02] MEDS: LORATADINE 10 MG TAB PO SCH (08:31)
[2019-08-02] MEDS: buPROPion XL 300 MG TAB.ER.24H PO SCH (08:31)
[2019-08-02] MEDS: ONDANSETRON 4 MG TAB PO PRN (12:38)
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
[2019-08-02] MEDS ORDERED: fluPHENAZine DECANOATE 25 MG/ML 5ML MDV IM STA (15:53)
[2019-08-09] MEDS ORDERED: fluPHENAZine DECANOATE 25 MG/ML 5ML MDV IM SCH (09:00)
== END 2019-08-02 16:15 | disposition home or self-care (01) | DRG 885 ==
LOC: EC 15:59 → 3MHU 20:23
PROVIDERS: ADMIT Psychiatry & Neurology Psychiatry; ATTEND Psychiatry & Neurology Psychiatry
DX: F31.5 Bipolar disorder, current episode depressed, severe, with psychotic features (principal); F40.10 Social phobia, unspecified; F43.10 Post-traumatic stress disorder, unspecified; F60.89 Other specific personality disorders; I10 Essential (primary) hypertension; N30.90 Cystitis, unspecified without hematuria; J06.9 Acute upper respiratory infection, unspecified; E66.9 Obesity, unspecified; Z68.33 Body mass index [BMI] 33.0-33.9, adult; T14.91XA Suicide attempt, initial encounter; T58.02XA Toxic effect of carbon monoxide from motor vehicle exhaust, intentional self-harm, initial encounter; Y92.89 Other specified places as the place of occurrence of the external cause; Z79.899 Other long term (current) drug therapy; Z81.8 Family history of other mental and behavioral disorders; Z82.5 Family history of asthma and other chronic lower respiratory diseases; Z87.891 Personal history of nicotine dependence; Z91.5 Personal history of self-harm
CPT/HCPCS: 71045; 80053; 80061; 80306; 81001; 81025; 82075; 82375; 83036; 84443; 85025; 86738; 87077; 87086; 87186; 87252; 87498; 87502; 87529; 87634; 87798; 99285

== ENCOUNTER 2022-02-08 14:08 | Emergency (ER) | payer OTHER ==
[2022-02-08 14:16] VITALS: TEMP 97.9
--- NOTE | 2022-02-08 16:21 | ED ---
Psych HPI - General Chief Complaint: Psychiatric Symptoms Stated Complaint: mental health Time Seen by Provider: 02/08/22 14:21 Source: patient Mode of arrival: ambulatory - History of Present Illness Initial Comments: Patient is a 31-year-old female with a past medical history of bipolar disorder and depression who presents to the emergency department for psychiatric evaluation. Patient presents with her mother who states patient has been extremely anxious lately. Patient has suicidal homicidal ideation without intention or plan. She does report visual hallucinations which usually occur when she wakes up in the middle of the night. Denies auditory hallucinations. Denies alcohol and drug use including marijuana. Denies fever, chills, chest, shortness of breath, abdominal pain, nausea, vomiting, diarrhea, and other concerns. - Related Data Home Medications Medication Instructions Recorded Confirmed Loratadine [Claritin] 10 mg PO DAILY 06/12/16 07/27/19 buPROPion HCL [Wellbutrin XL] 300 mg PO DAILY 09/13/18 07/27/19 buPROPion XL [Wellbutrin XL] 150 mg PO DAILY 09/13/18 07/27/19 lamoTRIgine [LaMICtal] 200 mg PO HS 09/13/18 07/27/19 Norg-Ee 0.18-0.215-0.25/0.35 1 tab PO HS 07/27/19 07/27/19 hydrOXYzine pamoate [Vistaril] 50 mg PO BID 07/27/19 07/27/19 Prolixen Deconoate 12.5 mg IM WEEKLY 08/02/19 08/02/19 Previous Rx's Medication Instructions Recorded fluPHENAZine [Prolixin] 1 mg PO BID #30 tab 08/02/19 Allergies Allergy/AdvReac Type Severity Reaction Status Date / Time Penicillins Allergy Rash/Hives Verified 02/08/22 14:16 Review of Systems ROS Statement: Those systems with pertinent positive or pertinent negative responses have been documented in the HPI. ROS Other: All systems not noted in ROS Statement are negative. Past Medical History Past Medical History: Hypertension History of Any Multi-Drug Resistant Organisms: None Reported Past Surgical History: Orthopedic Surgery Additional Past Surgical History / Comment(s): Left knee arthroscopy Past Anesthesia/Blood Transfusion Reactions: No Reported Reaction Past Psychological History: Anxiety, Bipolar, Depression, PTSD Smoking Status: Never smoker Past Alcohol Use History: Unable to Obtain Past Drug Use History: None Reported - Past Family History Father History Unknown: Yes Additional Family Medical History / Comment(s): Father is alive however, patient has no contact with him. Mother History Unknown: Yes Family Medical History: No Reported History Additional Family Medical History / Comment(s): Mother is alive at age 65 in overall good health. Pt. is unsure of any medical history. Brother(s) Additional Family Medical History / Comment(s): Patient has one half-brother with depression and anxiety. Patient has 2 half-sisters with no major medical problems. Patient does not have any children. General Exam Limitations: no limitations General appearance: alert, in no apparent distress Head exam: Present: atraumatic, normocephalic, normal inspection Eye exam: Present: normal appearance, PERRL, EOMI. Absent: scleral icterus, conjunctival injection, periorbital swelling Respiratory exam: Present: normal lung sounds bilaterally. Absent: respiratory distress, wheezes, rales, rhonchi, stridor Cardiovascular Exam: Present: regular rate, normal rhythm, normal heart sounds. Absent: systolic murmur, diastolic murmur, rubs, gallop, clicks GI/Abdominal exam: Present: soft, normal bowel sounds. Absent: distended, tenderness, guarding, rebound, rigid Neurological exam: Present: alert, oriented X3, CN II-XII intact Psychiatric exam: Present: normal affect, normal mood Skin exam: Present: warm, dry, intact, normal color. Absent: rash Course Vital Signs 02/08/22 02/08/22 02/08/22 14:13 15:16 16:49 Temperature 97.9 F Pulse Rate 96 84 Respiratory 20 16 16 Rate Blood Pressure 171/120 153/96 O2 Sat by Pulse 99 97 Oximetry 02/08/22 18:00 Temperature Pulse Rate Respiratory 18 Rate Blood Pressure O2 Sat by Pulse Oximetry Medical Decision Making - Medical Decision Making This is a 31-year-old female who presents with suicidal ideation, homicidal ideation, anxiety. Breath alcohol level is 0. Patient is cleared medically and can be evaluated by emergency psychiatric services. Patient evaluated by EPS and will be discharged with outpatient psychiatric resources. Patient will go home with her mother. Dr. Osborn is my attending. Disposition Clinical Impression: Acute anxiety, Suicidal ideation, Homicidal ideation Disposition: HOME SELF-CARE Condition: Fair Is patient prescribed a controlled substance at d/c from ED?: No Referrals: ANA M DAVIDSON DO [Primary Care Provider] - 1-2 days Time of Disposition: 19:45
[2022-02-08 16:54] VITALS: PULSE 84
[2022-02-08 20:06] VITALS: BP 141/78; RESP 16
== END 2022-02-08 20:06 | disposition home or self-care (01) ==
LOC: EC 14:08
DX: R45.851 Suicidal ideations (principal); R45.850 Homicidal ideations; F41.9 Anxiety disorder, unspecified; I10 Essential (primary) hypertension; Z88.0 Allergy status to penicillin; Z79.899 Other long term (current) drug therapy
CPT/HCPCS: 99284

== ENCOUNTER 2022-11-29 21:50 | Emergency (ER) | payer OTHER ==
[2022-11-29 21:58] VITALS: RESP 18; TEMP 98.8
[2022-11-29] MEDS ORDERED: KETOROLAC 15 MG/ML 1 ML VIAL IVP STA (22:03)
[2022-11-29] MEDS ORDERED: SODIUM CHLORIDE 0.9% 1,000 ML IV STA (22:03)
[2022-11-29] MEDS ORDERED: ONDANSETRON 4 MG/2 ML VIAL IVP STA (22:09)
[2022-11-29 22:42] LABS: Basophils # (A) 0.1 k/uL (0-0.2); Basophils % (A) 1 %; Eosinophils # (A) 0.2 k/uL (0-0.7); Eosinophils % (A) 2 %; HCT 42.8 % (34.0-46.0); HGB 14.3 gm/dL (11.4-16.0); Lymphocytes % (A) 42 %; MCH 28.4 pg (25.0-35.0); MCHC 33.5 g/dL (31.0-37.0); Mean Platelet Volume 7.5; Monocytes # (A) 0.3 k/uL (0-1.0); Monocytes % (A) 4 %; Neutrophils # (A) 4.8 k/uL (1.3-7.7); Neutrophils % (A) 51 %; Platelet Count 346 k/uL (150-450); RBC 5.04 m/uL (3.80-5.40); RDW 13.6 % (11.5-15.5); WBC 9.5 k/uL (3.8-10.6)
[2022-11-29 22:48] LABS: Appearance,Urine Clear (Clear); Bilirubin,Urine Negative (Negative); Blood,Urine Negative (Negative); Color,Urine Yellow; Glucose,Urine (UA) Negative (Negative); Ketones,Urine Negative (Negative); Leukocyte Esterase,Urine Negative (Negative); Nitrite,Urine Negative (Negative); PH, Urine 5.5 (5.0-8.0); Protein,Urine Trace (Negative); Specific Gravity,Urine 1.025 (1.001-1.035); Urobilinogen,Urine <2.0 mg/dL (<2.0)
[2022-11-29 22:53] LABS: ALT 22 U/L (4-34); AST 26 U/L (14-36); African American GFR (CKD) >90 (>60 ml/min/1.73 sqM); Albumin 4.2 g/dL (3.5-5.0); Alkaline Phosphatase 82 U/L (38-126); Anion Gap 12 mmol/L; Blood Urea Nitrogen 18 mg/dL (7-17); Calcium 9.7 mg/dL (8.4-10.2); Carbon Dioxide 24 mmol/L (22-30); Chloride 101 mmol/L (98-107); Glucose 103 mg/dL (74-99); Lipase 54 U/L (23-300); Non-African American GFR(CKD) >90 (>60 ml/min/1.73 sqM); Potassium 4.3 mmol/L (3.5-5.1); Sodium 137 mmol/L (137-145); Total Bilirubin 0.5 mg/dL (0.2-1.3); Total Protein 7.8 g/dL (6.3-8.2)
--- NOTE | 2022-11-29 23:49 | CT ---
EXAM: CT Abdomen and Pelvis Without Intravenous Contrast CLINICAL HISTORY: ITS.REASON CT Reason: right flank pain TECHNIQUE: Axial computed tomography images of the abdomen and pelvis without intravenous contrast. CTDI is 16.9 mGy and DLP is 1042 mGy-cm. This CT exam was performed using one or more of the following dose reduction techniques: automated exposure control, adjustment of the mA and/or kV according to patient size, and/or use of iterative reconstruction technique. COMPARISON: No relevant prior studies available. FINDINGS: Lung bases: Unremarkable. No mass. No consolidation. ABDOMEN: Liver: Unremarkable. Gallbladder and bile ducts: cholelithiasis without evidence of acute cholecystitis. No ductal dilation. Pancreas: Unremarkable. No ductal dilation. Spleen: Unremarkable. No splenomegaly. Adrenals: Unremarkable. No mass. Kidneys and ureters: Unremarkable. No hydronephrosis. No renal, ureteral, or bladder calculi. Stomach and bowel: Unremarkable. No obstruction. No mucosal thickening. PELVIS: Appendix: No findings to suggest acute appendicitis. Bladder: Unremarkable. No stones. Reproductive: Unremarkable as visualized. ABDOMEN and PELVIS: Intraperitoneal space: Unremarkable. No free air. No significant fluid collection. Bones/joints: No acute fracture. No dislocation. Soft tissues: Unremarkable. Vasculature: Unremarkable. No abdominal aortic aneurysm. Lymph nodes: Unremarkable. No enlarged lymph nodes. IMPRESSION: No acute findings in the abdomen or pelvis.
--- NOTE | 2022-11-30 00:02 | ED ---
Back Pain HPI - General Chief Complaint: Back Pain/Injury Stated Complaint: Back Pain Time Seen by Provider: 11/29/22 22:02 Source: patient Limitations: no limitations - History of Present Illness Initial Comments: Patient is a 32-year-old female presents to emergency department for right flank pain. Patient reports pain in her flanks and 11/15/22. States she has been to multiple hospitals and urgent cares for the pain. She was diagnosed with a UTI 2 days ago states she stopped taking her antibiotic due to reaction however when asked about the reaction she does not know what it was. She denies burning with urination, urinary frequency/urgency. She reports nausea no vomiting. She denies fever, chills, blood in urine. She does have history of kidney stones states she has not had an abdominal CT. She denies vaginal bleeding, vaginal discharge, concern for sexually transmitted infections. - Related Data Home Medications Medication Instructions Recorded Confirmed Loratadine [Claritin] 10 mg PO DAILY 06/12/16 07/27/19 buPROPion HCL [Wellbutrin XL] 300 mg PO DAILY 09/13/18 07/27/19 buPROPion XL [Wellbutrin XL] 150 mg PO DAILY 09/13/18 07/27/19 lamoTRIgine [LaMICtal] 200 mg PO HS 09/13/18 07/27/19 Norg-Ee 0.18-0.215-0.25/0.35 1 tab PO HS 07/27/19 07/27/19 hydrOXYzine pamoate [Vistaril] 50 mg PO BID 07/27/19 07/27/19 Prolixen Deconoate 12.5 mg IM WEEKLY 08/02/19 08/02/19 Previous Rx's Medication Instructions Recorded fluPHENAZine [Prolixin] 1 mg PO BID #30 tab 08/02/19 Ibuprofen [Motrin] 800 mg PO Q8HR PRN #30 tab 11/30/22 Ondansetron Odt [Zofran Odt] 4 mg PO Q8HR PRN #10 tab 11/30/22 Allergies Allergy/AdvReac Type Severity Reaction Status Date / Time Penicillins Allergy Rash/Hives Verified 02/08/22 14:16 Review of Systems ROS Statement: Those systems with pertinent positive or pertinent negative responses have been documented in the HPI. ROS Other: All systems not noted in ROS Statement are negative. Past Medical History Past Medical History: Hypertension History of Any Multi-Drug Resistant Organisms: None Reported Past Surgical History: Orthopedic Surgery Additional Past Surgical History / Comment(s): Left knee arthroscopy Past Anesthesia/Blood Transfusion Reactions: No Reported Reaction Past Psychological History: Anxiety, Bipolar, Depression, PTSD Smoking Status: Never smoker Past Alcohol Use History: Unable to Obtain Past Drug Use History: None Reported - Past Family History Father History Unknown: Yes Additional Family Medical History / Comment(s): Father is alive however, patient has no contact with him. Mother History Unknown: Yes Family Medical History: No Reported History Additional Family Medical History / Comment(s): Mother is alive at age 65 in overall good health. Pt. is unsure of any medical history. Brother(s) Additional Family Medical History / Comment(s): Patient has one half-brother with depression and anxiety. Patient has 2 half-sisters with no major medical problems. Patient does not have any children. General Exam Limitations: no limitations General appearance: alert Respiratory exam: Present: normal lung sounds bilaterally. Absent: respiratory distress, wheezes, rales, rhonchi, stridor Cardiovascular Exam: Present: regular rate, normal rhythm, normal heart sounds. Absent: systolic murmur, diastolic murmur, rubs, gallop, clicks GI/Abdominal exam: Present: soft, normal bowel sounds. Absent: distended, tenderness, guarding, rebound, rigid Back exam: Present: normal inspection, full ROM. Absent: CVA tenderness (R), CVA tenderness (L) Neurological exam: Present: alert Psychiatric exam: Present: normal affect, normal mood Skin exam: Present: warm, dry, intact, normal color. Absent: rash Course Vital Signs 11/29/22 11/29/22 11/30/22 21:54 21:58 00:08 Temperature 98.8 F Pulse Rate 79 86 Respiratory 18 18 Rate Blood Pressure 180/98 170/97 156/85 O2 Sat by Pulse 98 97 Oximetry Medical Decision Making - Medical Decision Making Was pt. sent in by a medical professional or institution (, PA, AUTO BODY MECHANIC, urgent care, hospital, or residential...) When possible be specific @ -No Did you speak to anyone other than the patient for history (EMS, parent, family, police, friend...)? What history was obtained from this source @ -No Did you review nursing and triage notes (agree or disagree)? Why? @ -I reviewed and agree with nursing and triage notes Were old charts reviewed (outside hosp., previous admission, EMS record, old EKG, old radiological studies, urgent care reports/EKG's, residential records)? Report findings @ -No old charts were reviewed Differential Diagnosis (chest pain, altered mental status, abdominal pain women, abdominal pain men, vaginal bleeding, weakness, fever, dyspnea, syncope, headache, dizziness, GI bleed, back pain, seizure, CVA, palpatations, mental health)? @ -Differential Abdominal Pain Women: Appendicitis, Cholecystitis, diverticulosis, ischemic bowel, pancreatitis, hepatitis, UTI, gastroenteritis, AAA, incarcerated hernia, bowel obstruction, constipation, inflammatory bowel, hepatitis, peptic ulcer disease, splenic infarction, perforated viscus, vulvitis, ovarian torsion, PID, kidney stone, placenta abruption, this is not meant to be an all-inclusive list EKG interpreted by me (3pts min.). @ -As above X-rays interpreted by me (1pt min.). @ -None done CT interpreted by me (1pt min.). @ -No acute intra-abdominal process U/S interpreted by me (1pt. min.). @ -None done What testing was considered but not performed or refused? (CT, X-rays, U/S, labs)? Why? @ -None What meds were considered but not given or refused? Why? @ -None Did you discuss the management of the patient with other professionals (professionals i.e. , PA, AUTO BODY MECHANIC, lab, RT, psych nurse, social work msw, admin assistant, teacher, president and chief operating officer, onsite case manager)? Give summary @ -No Was smoking cessation discussed for >3mins.? @ -No Was critical care preformed (if so, how long)? @ -No Were there social determinants of health that impacted care today? How? ( Homelessness, low income, unemployed, alcoholism, drug addiction, transportation, low edu. Level, literacy, decrease access to med. care, [facility], rehab)? @ -No Was there de-escalation of care discussed even if they declined (Discuss DNR or withdrawal of care, Hospice)? DNR status @ -No What co-morbidities impacted this encounter? (DM, HTN, Smoking, COPD, CAD, Cancer, CVA, ARF, Chemo, Hep., AIDS, mental health diagnosis, sleep apnea, morbid obesity)? @ -None Was patient admitted / discharged? Hospital course, mention meds given and route, prescriptions, significant lab abnormalities, going to OR and other pertinent info. @ -Discharged. No obvious etiology behind right flank pain. Urine is clean patient feeling improved she is instructed to follow-up with her primary care provider. Undiagnosed new problem with uncertain prognosis? @ -No Drug Therapy requiring intensive monitoring for toxicity (Heparin, Nitro, Insulin, Cardizem)? @ -No Were any procedures done? @ -No Diagnosis/symptom? @ -Right flank pain Acute, or Chronic, or Acute on Chronic? @ -Acute Uncomplicated (without systemic symptoms) or Complicated (systemic symptoms)? @ -Uncomplicated Side effects of treatment? @ -No] Exacerbation, Progression, or Severe Exacerbation? @ -No Poses a threat to life or bodily function? How? (Chest pain, [place], [place], pneumonia, PE, COPD, DKA, ARF, appy, cholecystitis, CVA, Diverticulitis, Homicidal, Suicidal, threat to staff... and all critical care pts) @ No Dr. Watson is my attending - Lab Data Result diagrams: 11/29/22 22:11 11/29/22 22:11 Lab Results 11/29/22 11/29/22 11/29/22 Range/Units 22:11 22:11 22:11 WBC 9.5 (3.8-10.6) k/uL RBC 5.04 (3.80-5.40) m/uL Hgb 14.3 (11.4-16.0) gm/dL Hct 42.8 (34.0-46.0) % MCV 85.0 (80.0-100.0) fL MCH 28.4 (25.0-35.0) pg MCHC 33.5 (31.0-37.0) g/dL RDW 13.6 (11.5-15.5) % Plt Count 346 (150-450) k/uL MPV 7.5 Neutrophils % 51 % Lymphocytes % 42 % Monocytes % 4 % Eosinophils % 2 % Basophils % 1 % Neutrophils # 4.8 (1.3-7.7) k/uL Lymphocytes # 4.0 (1.0-4.8) k/uL Monocytes # 0.3 (0-1.0) k/uL Eosinophils # 0.2 (0-0.7) k/uL Basophils # 0.1 (0-0.2) k/uL Sodium (137-145) mmol/L Potassium (3.5-5.1) mmol/L Chloride (98-107) mmol/L Carbon Dioxide (22-30) mmol/L Anion Gap mmol/L BUN (7-17) mg/dL Creatinine (0.52-1.04) mg/dL Est GFR (CKD-EPI)AfAm (>60 ml/min/1.73 sqM) Est GFR (CKD-EPI)NonAf (>60 ml/min/1.73 sqM) Glucose (74-99) mg/dL Lactic Ac Sepsis Rflx Plasma Lactic Acid Armando (0.7-2.0) mmol/L Calcium (8.4-10.2) mg/dL Total Bilirubin (0.2-1.3) mg/dL AST (14-36) U/L ALT (4-34) U/L Alkaline Phosphatase (38-126) U/L Total Protein (6.3-8.2) g/dL Albumin (3.5-5.0) g/dL Lipase (23-300) U/L Urine Color Yellow Urine Appearance Clear (Clear) Urine pH 5.5 (5.0-8.0) Ur Specific [place] 1.025 (1.001-1.035) Urine Protein Trace H (Negative) Urine Glucose (UA) Negative (Negative) Urine Ketones Negative (Negative) Urine Blood Negative (Negative) Urine Nitrite Negative (Negative) Urine Bilirubin Negative (Negative) Urine Urobilinogen <2.0 (<2.0) mg/dL Ur Leukocyte Esterase Negative (Negative) Urine HCG, Qual Not Detected (Not Detectd) 11/29/22 11/29/22 11/29/22 Range/Units 22:11 22:11 23:25 WBC (3.8-10.6) k/uL RBC (3.80-5.40) m/uL Hgb (11.4-16.0) gm/dL Hct (34.0-46.0) % MCV (80.0-100.0) fL MCH (25.0-35.0) pg MCHC (31.0-37.0) g/dL RDW (11.5-15.5) % Plt Count (150-450) k/uL MPV Neutrophils % % Lymphocytes % % Monocytes % % Eosinophils % % Basophils % % Neutrophils # (1.3-7.7) k/uL Lymphocytes # (1.0-4.8) k/uL Monocytes # (0-1.0) k/uL Eosinophils # (0-0.7) k/uL Basophils # (0-0.2) k/uL Sodium 137 (137-145) mmol/L Potassium 4.3 (3.5-5.1) mmol/L Chloride 101 (98-107) mmol/L Carbon Dioxide 24 (22-30) mmol/L Anion Gap 12 mmol/L BUN 18 H (7-17) mg/dL Creatinine 0.60 (0.52-1.04) mg/dL Est GFR (CKD-EPI)AfAm >90 (>60 ml/min/1.73 sqM) Est GFR (CKD-EPI)NonAf >90 (>60 ml/min/1.73 sqM) Glucose 103 H (74-99) mg/dL Lactic Ac Sepsis Rflx Y Plasma Lactic Acid Armando 2.1 H* (0.7-2.0) mmol/L Calcium 9.7 (8.4-10.2) mg/dL Total Bilirubin 0.5 (0.2-1.3) mg/dL AST 26 (14-36) U/L ALT 22 (4-34) U/L Alkaline Phosphatase 82 (38-126) U/L Total Protein 7.8 (6.3-8.2) g/dL Albumin 4.2 (3.5-5.0) g/dL Lipase 54 (23-300) U/L Urine Color Urine Appearance (Clear) Urine pH (5.0-8.0) Ur Specific [place] (1.001-1.035) Urine Protein (Negative) Urine Glucose (UA) (Negative) Urine Ketones (Negative) Urine Blood (Negative) Urine Nitrite (Negative) Urine Bilirubin (Negative) Urine Urobilinogen (<2.0) mg/dL Ur Leukocyte Esterase (Negative) Urine HCG, Qual (Not Detectd) Disposition Clinical Impression: Right flank pain, Nausea Disposition: HOME SELF-CARE Condition: Good Instructions (If sedation given, give patient instructions): Flank Pain (ED) Additional Instructions: Take medication as directed. Please follow-up with your primary care provider in 1-2 days. Return to the emergency department if you experience new, concerning, or worsening symptoms. Prescriptions: Ibuprofen [Motrin] 800 mg PO Q8HR PRN #30 tab PRN Reason: Pain Ondansetron Odt [Zofran Odt] 4 mg PO Q8HR PRN #10 tab PRN Reason: Nausea Is patient prescribed a controlled substance at d/c from ED?: No Referrals: None,Stated [Primary Care Provider] - 1-2 days
[2022-11-30 00:09] VITALS: BP 156/85; PULSE 86
== END 2022-11-30 00:09 | disposition home or self-care (01) ==
LOC: EC 21:50
DX: R10.9 Unspecified abdominal pain (principal); R11.0 Nausea; I10 Essential (primary) hypertension; F31.9 Bipolar disorder, unspecified; F41.9 Anxiety disorder, unspecified; Z88.0 Allergy status to penicillin; Z79.899 Other long term (current) drug therapy
CPT/HCPCS: 36415; 80053; 83605; 83690; 85025; 81003; 81025; 74176; 99284; 96374; 96361; J1885